=== PATIENT | male | born 2000 | race Caucasian/White ===

== ENCOUNTER 2024-02-21 21:11 | Emergency (ER) | payer OTHER ==
[2024-02-21] MEDS ORDERED: IBUPROFEN 200 MG TAB PO ONE (21:22)
[2024-02-21] MEDS ORDERED: ONDANSETRON 4 MG (ODT) TAB ONE (21:28)
--- NOTE | 2024-02-21 21:38 | ER ---
Nurse's Notes [facility] Name: Dawood Chan Age: 23 yrs Sex: Male : 2000 Arrival Date: 02/21/2024 Time: 21:11 Bed IW3 Private MD: Diagnosis: Flulike symptoms;Exposure to influenza Presentation: 02/20 21:23 Chief complaint: Patient states: fever, cough and body aches onset yesterday. Pt also cm10 reports vomiting this morning. pt's dad was recently diagnosed with Flu A. Coronavirus screen: Client denies travel out of the [place] in the last 14 days. Ebola Screen: Patient denies travel to an Ebola-affected area in the 21 days before illness onset. No symptoms or risks identified at this time. Initial Sepsis Screen: Does the patient meet any 2 criteria? Temp <36.0*C (96.8*F)) or > 38.3*C (100.9*F). HR > 90 bpm. Does the patient have a suspected source of infection? No. Patient's initial sepsis screen is negative. Risk Assessment: Do you want to hurt yourself or someone else? Patient reports no desire to harm self or others. Onset of symptoms was February 21, 2024. 21:23 Method Of Arrival: Ambulatory cm10 21:23 Acuity: NARGIS 4 cm10 Triage Assessment: 21:25 General: Appears in no apparent distress. uncomfortable, Behavior is calm, cooperative. cm10 Pain: Complains of pain in generalized body aches Pain does not radiate. Pain currently is 8 out of 10 on a pain scale. Quality of pain is described as aching. Neuro: No deficits noted. Level of Consciousness is awake, alert, obeys commands, Oriented to person, place, time, situation, Appropriate for age. Respiratory: No deficits noted. Reports cough that is Airway is patent Respiratory effort is even, unlabored, Respiratory pattern is regular, symmetrical. GI: No deficits noted. Reports vomiting. Historical: - Allergies: 21:24 No Known Allergies; cm10 - Home Meds: 21:24 None [Active]; cm10 - PMHx: 21:24 None; cm10 - PSHx: 21:24 None; cm10 - Immunization history:: Adult Immunizations up to date. - Infectious Disease History:: Denies. - Social history:: Smoking status: Patient/guardian denies using tobacco. Screenin:30 [facility] ED Fall Risk Assessment (Adult) History of falling in the last 3 months, cm10 including since admission No falls in past 3 months (0 pts) Confusion or Disorientation No (0 pts) Intoxicated or Sedated No (0 pts) Impaired Gait No (0 pts) Mobility Assist Device Used No (0 pt) Altered Elimination No (0 pt) Score/Fall Risk Level 0 - 2 = Low Risk Oriented to surroundings, Maintained a safe environment, Hourly rounding (assess needs \T\ fall precautionary measures) done. Abuse screen: Denies threats or abuse. Denies injuries from another. Nutritional screening: No deficits noted. Tuberculosis screening: No symptoms or risk factors identified. Vital Signs: 21:23 BP 122 / 93; Pulse 120; Resp 19; Temp 101.9(O); Pulse Ox 96% on R/A; Weight 97.52 kg; cm10 Height 5 ft. 10 in. ; Pain 8/10; 21:23 Body Mass Index 30.85 (97.52 kg, 177.8 cm) cm10 21:23 Pain Scale: Adult cm10 ED Course: 21:14 Patient arrived in ED. [email or web address] 21:24 Triage completed. cm10 21:24 Arm band placed on left wrist. Patient placed in waiting room. cm10 21:30 Patient has correct armband on for positive identification. Provided Education on: ER cm10 process and procedures.. 21:30 No provider procedures requiring assistance completed. Patient did not have IV access cm10 during this emergency room visit. 21:33 Lillie Dunham MD is Attending Physician. sd2 Administered Medications: 21:30 Drug: Ibuprofen PO 600 mg PO once Route: PO; cm10 21:42 Follow up: Response: No adverse reaction cm10 21:32 Drug: Ondansetron PO 4 mg PO once Route: PO; cm10 21:42 Follow up: Response: No adverse reaction cm10 Medication: 21:30 VIS not applicable for this client. cm10 Outcome: 21:30 Discharged to home ambulatory, with family, cm10 21:30 Condition: good 21:30 Discharge instructions given to patient, Instructed on discharge instructions, follow up and referral plans. medication usage, Demonstrated understanding of instructions, follow-up care, medications, Prescriptions given X 2, 21:37 Discharge ordered by . [email or web address] 21:43 Patient left the ED. cm10 Signatures: Yuliana Bernardo [email or web address] Lillie Dunham MD MD sd2 Shasta Keene RN RN cm10 Corrections: (The following items were deleted from the chart) 21:31 21:30 Discharge instructions given to patient, Instructed on discharge instructions, cm10 follow up and referral plans. medication usage, Demonstrated understanding of instructions, follow-up care, medications, Prescriptions given X 1, cm10
--- NOTE | 2024-02-21 21:38 | EDPHYS ---
Physician Documentation [facility] Name: Dawood Chan Age: 23 yrs Sex: Male : 2000 Arrival Date: 02/21/2024 Time: 21:11 Bed IW3 Private MD: ED Physician Lillie Dunham HPI: 02/20 21:33 This 23 yrs old Male presents to ER via Ambulatory with complaints of Flu Symptoms. sd2 21:33 23 yo M presents with CC of flu-like symptoms including fever, body aches, headache, sd2 cough and congestion. Father tested positive for the flu 2 days ago. Has been taking Tylenol and Mucinex at home with some improvement.. Historical: - Allergies: 21:24 No Known Allergies; cm10 - Home Meds: 21:24 None [Active]; cm10 - PMHx: 21:24 None; cm10 - PSHx: 21:24 None; cm10 - Immunization history:: Adult Immunizations up to date. - Infectious Disease History:: Denies. - Social history:: Smoking status: Patient/guardian denies using tobacco. ROS: 21:33 Eyes: Negative for injury, pain, redness, and discharge, sd2 21:33 Cardiovascular: Negative for chest pain, palpitations, and edema, Respiratory: Negative for shortness of breath, cough, wheezing. 21:33 MS/Extremity: Negative for injury and deformity, Skin: Negative for injury, rash, and discoloration, 21:33 Constitutional: Positive for body aches, chills, fever, Negative for poor PO intake, 21:33 ENT: Positive for sinus congestion, Negative for ear pain, sore throat, 21:33 Abdomen/GI: Positive for nausea and vomiting, Negative for abdominal pain, diarrhea, Exam: 21:33 Constitutional: This is a well developed, well nourished patient who is awake, alert, sd2 and in no acute distress. Head/Face: Normocephalic, atraumatic. Eyes: EOMI, normal conjunctiva bilaterally ENT: Nares patent. No nasal discharge, no septal abnormalities noted. Nasal congestion present. Mucous membranes moist. Chest/axilla: Normal chest wall appearance and motion. Nontender with no deformity. Cardiovascular: Regular rate and rhythm with a normal S1 and S2. No gallops, murmurs, or rubs. 2+ distal pulses. Respiratory: Lungs have equal breath sounds bilaterally, clear to auscultation and percussion. No rales, rhonchi or wheezes noted. No increased work of breathing, no retractions or nasal flaring. Abdomen/GI: Soft, non-tender, with normal bowel sounds. No guarding or rebound. No evidence of tenderness throughout. Skin: Warm, dry with normal turgor. Normal color with no rashes, no lesions, and no evidence of cellulitis. MS/ Extremity: Pulses equal, no cyanosis. Neurovascular intact. Full, normal range of motion. Psych: Awake, alert, with orientation to person, place and time. Behavior, mood, and affect are within normal limits. Vital Signs: 21:23 BP 122 / 93; Pulse 120; Resp 19; Temp 101.9(O); Pulse Ox 96% on R/A; Weight 97.52 kg; cm10 Height 5 ft. 10 in. ; Pain 8/10; 21:23 Body Mass Index 30.85 (97.52 kg, 177.8 cm) cm10 21:23 Pain Scale: Adult cm10 MDM: 21:33 Medical Screening Exam initiated sd2 21:33 Differential Diagnosis flu, viral URI, COVID, PNA, sinusitis, strep among others. Data sd2 reviewed: vital signs, nurses notes. I considered the following discharge prescriptions or medication management in the emergency department Medications were administered in the Emergency Department. See MAR. Historians other than the Patient: Parent: father at . Counseling: I had a detailed discussion with the patient and/or guardian regarding the historical points, exam findings, and any diagnostic results supporting the discharge/admit diagnosis, the need for outpatient follow up, to return to the emergency department if symptoms worsen or persist or if there are any questions or concerns that arise at home. ED course: Discussed testing. However, patient with close exposure to father who has already tested positive for the flu. Likely has the flu as well based upon symptoms. Treated with Ibuprofen and zofran for fever and nausea. Will give Tamiflu and advised of potential side effects and need for outpatient follow up as well as continued supportive care. He is comfortable with plan for dc and outpatient follow up. Verbalizes understanding of dc plan and strict return precautions. . Administered Medications: 21:30 Drug: Ibuprofen PO 600 mg PO once Route: PO; cm10 21:42 Follow up: Response: No adverse reaction cm10 21:32 Drug: Ondansetron PO 4 mg PO once Route: PO; cm10 21:42 Follow up: Response: No adverse reaction cm10 Disposition Summary: 02/21/24 21:37 Discharge Ordered Problem: new sd2 Symptoms: have improved sd2 Condition: Stable sd2 Diagnosis - Flulike symptoms sd2 - Exposure to influenza sd2 Followup: sd2 - With: Private Physician - When: 2 - 3 days - Reason: Recheck today's complaints, Continuance of care, Re-evaluation by your physician Discharge Instructions: - Discharge Summary Sheet sd2 - Influenza, Adult sd2 Forms: - Medication Reconciliation Form sd2 - Antibiotic Education sd2 - Prescription Opioid Use sd2 - Patient Portal Instructions sd2 - Leadership Thank You Letter sd2 Prescriptions: - Tamiflu 75 mg Oral capsule - take 1 tablet ORAL route every 12 hours for 5 days; 10 tablet; Refills: 0, sd2 Product Selection Permitted - ondansetron 8 mg Oral Tablet,disintegrating - take 1 tablet ORAL route every 8 hours As needed; 15 tablet; Refills: 0, sd2 Product Selection Permitted Signatures: Lillie Dunham MD MD sd2 Shasta Keene RN RN cm10
[2024-02-21 21:53] VITALS: BP 122/93; TEMP 101.9; O2SAT 96
== END 2024-02-21 21:43 | disposition home or self-care (01) ==
LOC: ER 21:11
DX: J11.1 Influenza due to unidentified influenza virus with other respiratory manifestations (principal); Z20.828 Contact with and (suspected) exposure to other viral communicable diseases
CPT/HCPCS: 99283; Q0162